=== PATIENT | female | born 1960 | race Caucasian/White ===

== ENCOUNTER 2016-11-12 09:39 | Emergency (ER) | payer OTHER ==
--- NOTE | 2016-11-12 10:31 | EDPHY ---
H & P Time Seen by Provider: 11/12/16 10:02 HPI/ROS: CHIEF COMPLAINT: left shoulder pain HISTORY OF PRESENT ILLNESS: Patient is a 56-year-old female who presents to the emergency department after falling this morning and injuring her left shoulder. She slipped and fell off a step. She attempted to grab the couch with her left arm. This caused her to have significant pain in her left shoulder. It is now moderate to severe. It does not radiate. It is worse with movement. She has no numbness or tingling. She denies striking her head or losing consciousness. No neck or back pain. REVIEW OF SYSTEMS: My complete review of systems is negative except as mentioned in the HPI. Past Medical/Surgical History: Includes hypertension Past surgical history: No shoulder surgery Smoking Status: Never smoked Physical Exam: Vitals noted General Appearance: Alert and no distress. Head: Pupils equal. Normal. Neck: No tenderness to palpation. Nexus negative Respiratory: No respiratory distress. Cardiac: regular rate and rhythm. Extremities: patient has tenderness palpation over left lateral deltoid. There is no deformity or swelling. There is no clavicular tenderness. No scapular tenderness. The patient has discomfort over deltoid with range of motion of the shoulder. Neurovascular intact distally. Skin: No rashes or lesions. Neuro: Alert. Normal mood and affect. Constitutional: Initial Vital Signs Temperature (C) 37 C 11/12/16 09:43 Heart Rate 89 11/12/16 09:43 Respiratory Rate 16 11/12/16 09:43 Blood Pressure 124/80 H 11/12/16 09:43 O2 Sat (%) 97 11/12/16 09:43 O2 Delivery Mode Room Air Allergies/Adverse Reactions: No Known Allergies Allergy (Unverified 11/12/16 09:48) Home Medications: Medication Instructions Recorded Metoprolol 11/12/16 Ondansetron Odt [Zofran Odt 4 mg 4 mg PO Q4PRN PRN #7 tab 11/12/16 (*)] oxyCODONE/APAP 5/325 [Percocet 1 - 2 tab PO Q4PRN PRN #17 tab 11/12/16 5/325 (*)] Medical Decision Making ED Course/Re-evaluation: In the emergency department I discussed possible etiologies with the patient. X -ray was ordered. Left shoulder x-ray: Patient has comminuted humeral head fracture. Orthopedics was paged. I discussed the results with the patient. She was placed in a sling. Neurovascular intact distally. Dr. Greer was in the operating room. He was re-paged. I subsequently spoke with Dr. Singh. He recommended a CT imaging, sling and discharged to follow up with Dr. Greer. A CT scan was ordered. I discussed this with the patient. I answered all of her questions. I subsequently spoke with Dr. Greer. He agreed with the plan. Differential Diagnosis: My differential includes but is not limited to fracture, dislocation, contusion , rotator cuff injury, ligamentous strain, strain Departure - Departure Disposition: Home, Routine, Self-Care Clinical Impression: Humeral head fracture Qualifiers: Encounter type: initial encounter Fracture type: closed Laterality: left Qualifier Code: (S42.292A) Other displaced fracture of upper end of left humerus , initial encounter for closed fracture Condition: Good Instructions: Arm Fracture in Adults (ED) Additional Instructions: You broke your humeral head. This will need close follow-up with Orthopedics. Call Dr. Greer office to make an appointment. Referrals: Jeanie Floyd NP [Primary Care Provider] - As per Instructions Kit Greer MD [Medical Doctor] - 1-2 days without fail Prescriptions: oxyCODONE/APAP 5/325 [Percocet 5/325 (*)] 1 - 2 tab PO Q4PRN PRN #17 tab PRN Reason: For Moderate To Severe Pain Ondansetron Odt [Zofran Odt 4 mg (*)] 4 mg PO Q4PRN PRN #7 tab PRN Reason: For Nausea & Vomiting
[2016-11-12 12:13] VITALS: BP 125/73; PULSE 74; RESP 18; TEMP 98.2; O2SAT 96
--- NOTE | 2016-11-12 12:58 | CT ---
CT left shoulder 1145 hours. History: Complex left proximal humeral fracture. Technique: Spiral imaging was obtained through the left shoulder. Images were reconstructed down to 1 mm slice thickness and reviewed in multiple planes. Volume rendering was also performed to better vi sualize osseous detail and relationships. Dose reduction techniques were utilized. Findings: Comparison to x-ray study from earlier today at 0950 hours. There is complex fracture proximal left humerus with fracture components involving the greater tubero sity as well as subcapital region. There is some buckling of the cortex along the posterior margin of the fracture of the proximal left humerus just below the humeral head region. Alignment is relativel y good. There is no displacement of the shaft with respect to the head of the left humerus. The scapu la is normal in appearance as well as the clavicle. The ribs also appear to be intact. The visualized left mid to upper lung is normal in appearance. Left shoulder joint effusion is suspected. There is also some soft tissue swelling adjacent to the fracture. Impression: Complex nondisplaced proximal left humeral fracture as detailed above.
--- NOTE | 2016-11-12 13:39 | DX ---
Left shoulder 2 views History: Fall, pain. Comparison: None available. Findings: There is a moderately comminuted fracture of the surgical neck of the humerus with a minima lly displaced fragment involving the greater tuberosity. Alignment at the glenohumeral joint is erick l. The acromioclavicular and coracoclavicular relationships are normal. There is no pneumothorax. Impression: Comminuted fracture of the proximal humerus
== END 2016-11-12 12:23 | disposition home or self-care (01) ==
DX: S42.202A Unspecified fracture of upper end of left humerus, initial encounter for closed fracture (principal); I10 Essential (primary) hypertension; W01.0XXA Fall on same level from slipping, tripping and stumbling without subsequent striking against object, initial encounter

== ENCOUNTER → 2017-02-27 | Outpatient (CLI) | payer OTHER | LOC: BMCIMAGING 15:12 | PROVIDERS: ATTEND Nurse Practitioner | DX: Z12.31 Encounter for screening mammogram for malignant neoplasm of breast (principal) | CPT/HCPCS: G0202 ==

== ENCOUNTER → 2017-08-09 | Outpatient (CLI) | payer OTHER | LOC: FIMAGING 08-07 12:36 | PROVIDERS: ATTEND Nurse Practitioner | DX: Z13.820 Encounter for screening for osteoporosis (principal); M81.0 Age-related osteoporosis without current pathological fracture ==

== ENCOUNTER → 2018-02-28 | Outpatient (CLI) | payer OTHER | LOC: BMCIMAGING 14:50 | PROVIDERS: ATTEND Nurse Practitioner | DX: Z12.31 Encounter for screening mammogram for malignant neoplasm of breast (principal) ==